=== PATIENT | female | born 1970 | race Caucasian/White ===

== ENCOUNTER 2018-03-10 08:49 | Day surgery (SDC) | payer OTHER ==
[2018-03-10] MEDS ORDERED: Bupivacaine/Epinephrine 0.25% 30 ML VIAL ONE (09:16)
[2018-03-10] MEDS ORDERED: Fentanyl 250 MCG/5 ML VIAL ONE (09:24)
[2018-03-10] MEDS ORDERED: cefOXitin 2 GM VIAL ONE (09:27)
[2018-03-10] MEDS ORDERED: Sodium Chloride 0.9% 100 ML ONE (09:28)
[2018-03-10] MEDS ORDERED: Fentanyl 100 MCG/2 ML VIAL ONE (11:03)
[2018-03-10] MEDS ORDERED: Promethazine HCl 25 MG/ML VIAL ONE (11:06)
--- NOTE | 2018-03-10 11:15 | OP ---
DATE OF PROCEDURE: 03/10/2018 PREOPERATIVE DIAGNOSIS: Acute cholecystitis. POSTOPERATIVE DIAGNOSIS: Acute cholecystitis. PROCEDURE: Laparoscopic cholecystectomy. SURGEON: Scott Weldon M.D. ANESTHESIA: General. ESTIMATED BLOOD LOSS: 50 mL. COMPLICATIONS: None. FINDINGS: Acute cholecystitis. SPECIMEN: Gallbladder technique. PROCEDURE IN DETAIL: The patient was taken to the Operating Room and laid supine on the Operating Ro om table. After general anesthetic was obtained, the abdomen was prepped and draped in a sterile fas hion. A curved incision was made below the umbilicus. Cautery was used to dissect down to the umbil ical fascia. Umbilical fascia was incised and held up using a Earl. The abdominal cavity was ente red using a Elvira clamp. Holding stitch of Vicryl was placed on each side of the fascia. Deal tro car was placed. High-flow pneumoperitoneum was obtained. An upper midline 5-mm port and two right u pper quadrant 5-mm ports were placed under direct camera visualization. The gallbladder was retracte d from the gallbladder fossa. The peritoneum of the gallbladder was opened anteriorly and posteriorl y. The critical view triangle was seen showing only the cystic duct and cystic artery branching from medial to lateral. There were no other branching structures. Two clips were placed proximally on t he cystic duct and one laterally. It was cut using laparoscopic scissors. The cystic artery was francis en in the same way. Electrocautery was then used to dissect the gallbladder out of the gallbladder f kelsy. The gallbladder was placed in an Endo catch bag and brought out through the Deal. There was no bleeding or bile in the liver bed. The cystic duct stump and cystic artery stump were intact wit hout evidence of extravasation or bleeding. All port sites were infiltrated using local anesthesia. All ports were removed under camera visualization. Pneumoperitoneum was let down. The Vicryl was u sed to close the fascial defect below the umbilicus. All incisions were irrigated and closed using 4 -0 Monocryl and DermaBond. The patient was en route to Recovery in stable condition. All instrument counts, needle counts and lap counts were correct.
--- NOTE | 2018-03-10 11:16 | HP ---
The patient is a 47-year-old female who presents with chief complaint of right upper quadrant pain. HISTORY OF PRESENT ILLNESS: This is a 47-year-old female who presents with a history of severe pain in right upper quadrant, described as sharp, not going away. Seen in the [facility] Emergency Room over night and sent here for higher level of care. Pain is intractable. She has had similar symptoms in the past that improved. Pain was always previously associated with greasy fatty fried food, although she has been off that for a few weeks now. No history of jaundice, pancreatitis. She now has a [facility] history of gallstones. PAST MEDICAL HISTORY: She denies. PAST SURGICAL HISTORY: Hysterectomy. MEDICINES: None. ALLERGIES: No known drug allergies. SOCIAL HISTORY: No smoking, alcohol or other drugs. FAMILY HISTORY: Noncontributory to GI malignancy or anesthetic related complication. REVIEW OF SYSTEMS: Ten system review of systems otherwise negative unless described above. PHYSICAL EXAMINATION: HEENT: Sclerae are anicteric. Oropharynx clear. NECK: No lymphadenopathy. LUNGS: Clear. HEART: Regular rate and rhythm. ABDOMEN: Soft, tender right upper quadrant with localized guarding, no rebound, no abdominal hernias . EXTREMITIES: No ischemia or edema to extremities. LABORATORY DATA AND IMAGING DATA: Liver function tests normal. Ultrasound shows gallstone in the ne ck of the gallbladder, pericholecystic fluid, gallbladder wall thickening. ASSESSMENT: Acute cholecystitis. PLAN: Laparoscopic cholecystectomy. Risks, benefits and alternatives discussed. She gives consent. We will do this today.
== END 2018-03-10 12:15 | disposition home or self-care (01) ==
LOC: SDC 08:49
PROVIDERS: ATTEND Surgery
PROC: 0FT44ZZ Resection of Gallbladder, Percutaneous Endoscopic Approach (ICD-10-PCS; principal; 2018-03-10)
DX: K80.12 Calculus of gallbladder with acute and chronic cholecystitis without obstruction (principal)
CPT/HCPCS: 88304; 96374; 96375; J0694; J2550; J3010; J7050

== ENCOUNTER 2021-02-20 08:38 | Outpatient (CLI) | payer BC | END 2021-02-20 08:39 | disposition home or self-care (01) | LOC: DTY/OP 08:38 | PROVIDERS: ATTEND Surgery | DX: E66.01 Morbid (severe) obesity due to excess calories (principal); Z68.35 Body mass index [BMI] 35.0-35.9, adult; Z71.3 Dietary counseling and surveillance | CPT/HCPCS: 97802 ==